=== PATIENT | female | born 1965 | race Caucasian/White ===

== ENCOUNTER 2017-12-29 16:51 | Inpatient (IN) | payer BC ==
[2017-12-29] MEDS ORDERED: SODIUM CHLORIDE 0.9% 1,000 ML IV STA (18:07)
[2017-12-29] MEDS ORDERED: KETOROLAC 30 MG/ML 1 ML VIAL IVP STA (18:07)
[2017-12-29] MEDS ORDERED: ONDANSETRON 4 MG/2 ML VIAL IVP STA (18:07)
--- NOTE | 2017-12-29 18:12 | ED ---
Abdominal Pain HPI - General Chief Complaint: Abdominal Pain Stated Complaint: abdominal pain Time Seen by Provider: 12/29/17 18:00 Source: patient, RN notes reviewed Mode of arrival: ambulatory Limitations: no limitations - History of Present Illness Initial Comments: This is a 52-year-old female who presents to the emergency department with chief complaint of abdominal pain. Patient states that she was visiting her mother who is hospitalized upstairs here at the hospital. She states that while she was visiting her she developed a burning abdominal pain. She states that she took a digestive enzyme and Tums because she believed it was heartburn. She states that this did not relieve the pain. She states that she went back to her parents house to lie down, thinking that the pain would subside , however it has progressed throughout the day. She states the pain is made better with lying stretched out and is worse with sitting or bending over. She admits to associated nausea but denies vomiting, diarrhea or constipation. Denies fevers but does admit to chills. Denies dysuria, hematuria, chest pain or shortness of breath. Patient states that the only abdominal surgeries she's had are 2 sections. - Related Data Home Medications Medication Instructions Recorded Confirmed Calcium Carbonate [Tums] 500 mg PO QID PRN 12/29/17 12/29/17 Allergies Allergy/AdvReac Type Severity Reaction Status Date / Time No Known Allergies Allergy Verified 12/29/17 17:20 Review of Systems ROS Statement: Those systems with pertinent positive or pertinent negative responses have been documented in the HPI. ROS Other: All systems not noted in ROS Statement are negative. Past Medical History Past Medical History: No Reported History History of Any Multi-Drug Resistant Organisms: None Reported Past Surgical History: Section Past Psychological History: No Psychological Hx Reported Smoking Status: Never smoker Past Alcohol Use History: Occasional Past Drug Use History: None Reported General Exam - General Exam Comments Initial Comments: General: Awake and alert, well-developed; in no apparent distress. HEENT: Head atraumatic, normocephalic. Pupils are equal, round and reactive to light. Extraocular movements intact. Oropharynx moist without erythema or exudate. Neck: Supple. Normal ROM. Cardiovascular: Regular rate and rhythm. No murmurs, rubs or gallops. Chest symmetrical. Respiratory: Lungs clear to auscultation bilaterally. No wheezes, rales or rhonchi. Normal respiratory effort with no use of accessory muscles. Abdomen: Tenderness on palpation of right upper quadrant with guarding. No rigidity or rebound. Normal bowel sounds in all 4 quadrants. Musculoskeletal: Normal ROM, no tenderness bilateral upper and lower extremities. Ambulating normally. Skin: [place], warm and dry without rashes or lesions. Neurological: Alert and oriented x3. CN II-XII grossly intact. Speech is fluent and answers are appropriate. No focal neuro deficits. Psychiatric: Normal mood and affect. No overt signs of depression or anxiety noted. Limitations: no limitations Course Vital Signs 12/29/17 12/29/17 12/29/17 17:17 20:00 22:00 Temperature 97.6 F 97.5 F L 98.7 F Pulse Rate 88 91 83 Respiratory 18 15 16 Rate Blood Pressure 120/72 135/72 113/58 O2 Sat by Pulse 98 95 98 Oximetry - Reevaluation(s) Reevaluation #1: At this time, patient is resting comfortably in bed. She states that she had an episode of vomiting and that she feels completely improved. She states that she is no longer having abdominal pain. She states that she will still have labs drawn to make sure there is no underlying issue. Does not wish for any medication at this time. 12/29/17 18:43 Medical Decision Making - Medical Decision Making This is a 52-year-old female who presents to the emergency department with chief complaint of abdominal pain that started this morning. On presentation, patient's vital signs are stable. On physical examination, right upper quadrant is tender on palpation. While in the emergency department, patient had an episode of vomiting. After this, her abdominal pain subsided. Labs were still drawn. Labs revealed an elevated total bilirubin, ALT and AST. Ultrasound of the gallbladder was obtained and revealed evidence for acute and chronic cholecystitis. Also revealed evidence for possible gallbladder tumor. Patient will be admitted to Dr. Burton. She is to be kept nothing by mouth. Patient was made aware of findings and plan. She is in agreement with admission. All questions answered. - Lab Data Result diagrams: 12/29/17 18:55 12/29/17 18:55 Lab Results 12/29/17 12/29/17 12/29/17 Range/Units 18:55 18:55 18:55 WBC 10.2 (3.8-10.6) k/uL RBC 5.25 (3.80-5.40) m/uL Hgb 15.4 (11.4-16.0) gm/dL Hct 46.0 (34.0-46.0) % MCV 87.5 (80.0-100.0) fL MCH 29.4 (25.0-35.0) pg MCHC 33.6 (31.0-37.0) g/dL RDW 12.9 (11.5-15.5) % Plt Count 261 (150-450) k/uL Neutrophils % 94 % Lymphocytes % 3 % Monocytes % 2 % Eosinophils % 0 % Basophils % 0 % Neutrophils # 9.6 H (1.3-7.7) k/uL Lymphocytes # 0.3 L (1.0-4.8) k/uL Monocytes # 0.2 (0-1.0) k/uL Eosinophils # 0.0 (0-0.7) k/uL Basophils # 0.0 (0-0.2) k/uL PT 9.9 (9.0-12.0) sec INR 1.0 (<1.2) APTT 21.8 L (22.0-30.0) sec Sodium 142 (137-145) mmol/L Potassium 3.7 (3.5-5.1) mmol/L Chloride 101 (98-107) mmol/L Carbon Dioxide 25 (22-30) mmol/L Anion Gap 16 mmol/L BUN 17 (7-17) mg/dL Creatinine 0.60 (0.52-1.04) mg/dL Est GFR (CKD-EPI)AfAm >90 (>60 ml/min/1.73 sqM) Est GFR (CKD-EPI)NonAf >90 (>60 ml/min/1.73 sqM) Glucose 127 H (74-99) mg/dL Calcium 10.6 H (8.4-10.2) mg/dL Total Bilirubin 1.6 H (0.2-1.3) mg/dL AST 355 H (14-36) U/L ALT 254 H (9-52) U/L Alkaline Phosphatase 102 (38-126) U/L Total Protein 7.2 (6.3-8.2) g/dL Albumin 4.6 (3.5-5.0) g/dL Amylase 61 (30-110) U/L Lipase 146 (23-300) U/L Urine Color Urine Appearance (Clear) Urine pH (5.0-8.0) Ur Specific [place] (1.001-1.035) Urine Protein (Negative) Urine Glucose (UA) (Negative) Urine Ketones (Negative) Urine Blood (Negative) Urine Nitrite (Negative) Urine Bilirubin (Negative) Urine Urobilinogen (<2.0) mg/dL Ur Leukocyte Esterase (Negative) Ur Squamous Epith Cells (0-4) /hpf Urine Mucus (None) /hpf Urine Yeast (Budding) (None) /hpf Urine HCG, Qual (Not Detectd) 12/29/17 12/29/17 Range/Units 21:59 21:59 WBC (3.8-10.6) k/uL RBC (3.80-5.40) m/uL Hgb (11.4-16.0) gm/dL Hct (34.0-46.0) % MCV (80.0-100.0) fL MCH (25.0-35.0) pg MCHC (31.0-37.0) g/dL RDW (11.5-15.5) % Plt Count (150-450) k/uL Neutrophils % % Lymphocytes % % Monocytes % % Eosinophils % % Basophils % % Neutrophils # (1.3-7.7) k/uL Lymphocytes # (1.0-4.8) k/uL Monocytes # (0-1.0) k/uL Eosinophils # (0-0.7) k/uL Basophils # (0-0.2) k/uL PT (9.0-12.0) sec INR (<1.2) APTT (22.0-30.0) sec Sodium (137-145) mmol/L Potassium (3.5-5.1) mmol/L Chloride (98-107) mmol/L Carbon Dioxide (22-30) mmol/L Anion Gap mmol/L BUN (7-17) mg/dL Creatinine (0.52-1.04) mg/dL Est GFR (CKD-EPI)AfAm (>60 ml/min/1.73 sqM) Est GFR (CKD-EPI)NonAf (>60 ml/min/1.73 sqM) Glucose (74-99) mg/dL Calcium (8.4-10.2) mg/dL Total Bilirubin (0.2-1.3) mg/dL AST (14-36) U/L ALT (9-52) U/L Alkaline Phosphatase (38-126) U/L Total Protein (6.3-8.2) g/dL Albumin (3.5-5.0) g/dL Amylase (30-110) U/L Lipase (23-300) U/L Urine Color Yellow Urine Appearance Cloudy H (Clear) Urine pH 7.5 (5.0-8.0) Ur Specific [place] 1.015 (1.001-1.035) Urine Protein Negative (Negative) Urine Glucose (UA) Negative (Negative) Urine Ketones 1+ H (Negative) Urine Blood Negative (Negative) Urine Nitrite Negative (Negative) Urine Bilirubin Negative (Negative) Urine Urobilinogen 6.0 (<2.0) mg/dL Ur Leukocyte Esterase Negative (Negative) Ur Squamous Epith Cells 2 (0-4) /hpf Urine Mucus Rare H (None) /hpf Urine Yeast (Budding) Many H (None) /hpf Urine HCG, Qual Not Detected (Not Detectd) - Radiology Data Radiology results: report reviewed Ultrasound gallbladder impression: Multiple gallstones and gallbladder debris. Thickened gallbladder wall. This is consistent with acute and chronic cholecystitis. Intrahepatic bile ducts are not dilated. Gallbladder tumor cannot be excluded. Disposition Clinical Impression: Acute cholecystitis Disposition: ADMITTED IP TO THIS HOSP Condition: Stable Is patient prescribed a controlled substance at d/c from ED?: No Referrals: Nonstaff,Physician [REFERRING] - 1-2 days Time of Disposition: 23:23
[2017-12-29 19:17] LABS: Basophils % (A) 0 %; Eosinophils % (A) 0 %; HGB 15.4 gm/dL (11.4-16.0); Lymphocytes # (A) 0.3 k/uL (1.0-4.8); Lymphocytes % (A) 3 %; MCH 29.4 pg (25.0-35.0); MCHC 33.6 g/dL (31.0-37.0); MCV 87.5 fL (80.0-100.0); Monocytes # (A) 0.2 k/uL (0-1.0); Monocytes % (A) 2 %; Neutrophils # (A) 9.6 k/uL (1.3-7.7); Neutrophils % (A) 94 %; Platelet Count 261 k/uL (150-450); RBC 5.25 m/uL (3.80-5.40); RDW 12.9 % (11.5-15.5); WBC 10.2 k/uL (3.8-10.6)
[2017-12-29 19:48] LABS: Prothrombin Time 9.9 sec (9.0-12.0)
[2017-12-29 19:54] LABS: ALT 254 U/L (9-52); AST 355 U/L (14-36); Albumin 4.6 g/dL (3.5-5.0); Alkaline Phosphatase 102 U/L (38-126); Amylase 61 U/L (30-110); Anion Gap 16 mmol/L; Blood Urea Nitrogen 17 mg/dL (7-17); Calcium 10.6 mg/dL (8.4-10.2); Carbon Dioxide 25 mmol/L (22-30); Chloride 101 mmol/L (98-107); Glucose 127 mg/dL (74-99); Lipase 146 U/L (23-300); Potassium 3.7 mmol/L (3.5-5.1); Sodium 142 mmol/L (137-145); Total Bilirubin 1.6 mg/dL (0.2-1.3); Total Protein 7.2 g/dL (6.3-8.2)
[2017-12-29 20:01] LABS: Partial Thromboplastin Time 21.8 sec (22.0-30.0)
--- NOTE | 2017-12-29 21:17 | US ---
EXAMINATION TYPE: US gallbladder DATE OF EXAM: 12/29/2017 COMPARISON: NONE CLINICAL HISTORY: Pain. Extreme abd pain tonight, patient vomited and then symptoms went away EXAM MEASUREMENTS: Liver Length: 13.8 cm Gallbladder Wall: 0.3 cm CBD: 0.7 cm Right Kidney: 10.1 x 5.0 x 5.7 cm * bowel gas limits exam Pancreas: wnl Liver: intercostal imaging due to bowel gas, 2 cystic areas noted medially, largest = 2.6cm Gallbladder: 1.5cm stone seen near neck of GB, appears non mobile, possible multiple smaller stone s een within tumefactive sludge versus mass, fundal fold noted that also contains possible sludge and s mall stones, wall thickness was borderline, no gutter fluid seen Evidence for sonographic Hogue's sign: no CBD: upper limits of normal with no obvious obstruction seen Right Kidney: wnl IMPRESSION: Multiple gallstones and gallbladder debris. Thickened gallbladder wall. This is consisten t with acute and chronic cholecystitis. Intrahepatic bile ducts are not dilated. Gallbladder tumor ca nnot be excluded.
[2017-12-29 22:11] LABS: Appearance,Urine Cloudy (Clear); Bilirubin,Urine Negative (Negative); Blood,Urine Negative (Negative); Budding Yeast,Urine Many /hpf; Color,Urine Yellow; Glucose,Urine (UA) Negative (Negative); Ketones,Urine 1+ (Negative); Leukocyte Esterase,Urine Negative (Negative); Mucus,Urine Rare /hpf; Nitrite,Urine Negative (Negative); PH, Urine 7.5 (5.0-8.0); Protein,Urine Negative (Negative); Specific Gravity,Urine 1.015 (1.001-1.035); Squamous Epithelial Cell,Urine 2 /hpf (0-4)
[2017-12-29] MEDS ORDERED: IBUPROFEN 400 MG TAB PO PRN (22:50)
[2017-12-29] MEDS ORDERED: KETOROLAC 30 MG/ML 1 ML VIAL IVP PRN (22:50)
[2017-12-29] MEDS ORDERED: MORPHINE SULFATE 4 MG/ML SYRINGE IV PRN (22:50)
[2017-12-29] MEDS ORDERED: NALOXONE 0.4 MG/ML 1 ML VIAL IV PRN (22:50)
[2017-12-29] MEDS ORDERED: SODIUM CHLORIDE 0.9% 1,000 ML IV SCH (23:00)
[2017-12-30 07:09] VITALS: BP 106/68; PULSE 79; RESP 14; TEMP 98
--- NOTE | 2017-12-30 09:53 | P.GSHP ---
History of Present Illness H&P Date: 12/30/17 Chief Complaint: Right upper quadrant pain This is a 52-year-old female who was visiting her mother in the hospital. The patient states she developed abdominal pain. She was seen in the emergency room and found have evidence of cholelithiasis. Patient was admitted due to mild elevation in her liver function tests. The patient states she currently has no pain. And feels well. Past Medical History Past Medical History: Cancer Additional Past Medical History / Comment(s): skin CA - removed History of Any Multi-Drug Resistant Organisms: None Reported Past Surgical History: Section Past Anesthesia/Blood Transfusion Reactions: No Reported Reaction Past Psychological History: No Psychological Hx Reported Smoking Status: Never smoker Past Alcohol Use History: Occasional Past Drug Use History: None Reported - Past Family History Mother Additional Family Medical History / Comment(s): prolapsed valve- open heart surgery Sep 2017 Father Family Medical History: No Reported History Medications and Allergies Home Medications Medication Instructions Recorded Confirmed Type Calcium Carbonate [Tums] 500 mg PO QID PRN 12/29/17 12/29/17 History Allergies Allergy/AdvReac Type Severity Reaction Status Date / Time No Known Allergies Allergy Verified 12/29/17 17:20 Surgical - Exam Vital Signs Temp Pulse Resp BP Pulse Ox 97.6 F 88 18 120/72 98 12/29/17 17:17 12/29/17 17:17 12/29/17 17:17 12/29/17 17:17 12/29/17 17:17 - General well developed, no distress - Eyes PERRL - ENT normal pinna - Neck no masses - Respiratory normal expansion - Cardiovascular Rhythm: regular - Abdomen Abdomen: soft, non tender Results - Labs 12/29/17 18:55 12/29/17 18:55 Abnormal Lab Results - Last 24 Hours (Table) 12/29/17 12/29/17 12/29/17 Range/Units 18:55 18:55 18:55 Neutrophils # 9.6 H (1.3-7.7) k/uL Lymphocytes # 0.3 L (1.0-4.8) k/uL APTT 21.8 L (22.0-30.0) sec Glucose 127 H (74-99) mg/dL Calcium 10.6 H (8.4-10.2) mg/dL Total Bilirubin 1.6 H (0.2-1.3) mg/dL AST 355 H (14-36) U/L ALT 254 H (9-52) U/L Urine Appearance (Clear) Urine Ketones (Negative) Urine Mucus (None) /hpf Urine Yeast (Budding) (None) /hpf 12/29/17 Range/Units 21:59 Neutrophils # (1.3-7.7) k/uL Lymphocytes # (1.0-4.8) k/uL APTT (22.0-30.0) sec Glucose (74-99) mg/dL Calcium (8.4-10.2) mg/dL Total Bilirubin (0.2-1.3) mg/dL AST (14-36) U/L ALT (9-52) U/L Urine Appearance Cloudy H (Clear) Urine Ketones 1+ H (Negative) Urine Mucus Rare H (None) /hpf Urine Yeast (Budding) Many H (None) /hpf Diabetes panel 12/29/17 Range/Units 18:55 Sodium 142 (137-145) mmol/L Potassium 3.7 (3.5-5.1) mmol/L Chloride 101 (98-107) mmol/L Carbon Dioxide 25 (22-30) mmol/L BUN 17 (7-17) mg/dL Creatinine 0.60 (0.52-1.04) mg/dL Glucose 127 H (74-99) mg/dL Calcium 10.6 H (8.4-10.2) mg/dL AST 355 H (14-36) U/L ALT 254 H (9-52) U/L Alkaline Phosphatase 102 (38-126) U/L Total Protein 7.2 (6.3-8.2) g/dL Albumin 4.6 (3.5-5.0) g/dL Calcium panel 12/29/17 Range/Units 18:55 Calcium 10.6 H (8.4-10.2) mg/dL Albumin 4.6 (3.5-5.0) g/dL Pituitary panel 12/29/17 Range/Units 18:55 Sodium 142 (137-145) mmol/L Potassium 3.7 (3.5-5.1) mmol/L Chloride 101 (98-107) mmol/L Carbon Dioxide 25 (22-30) mmol/L BUN 17 (7-17) mg/dL Creatinine 0.60 (0.52-1.04) mg/dL Glucose 127 H (74-99) mg/dL Calcium 10.6 H (8.4-10.2) mg/dL Adrenal panel 12/29/17 Range/Units 18:55 Sodium 142 (137-145) mmol/L Potassium 3.7 (3.5-5.1) mmol/L Chloride 101 (98-107) mmol/L Carbon Dioxide 25 (22-30) mmol/L BUN 17 (7-17) mg/dL Creatinine 0.60 (0.52-1.04) mg/dL Glucose 127 H (74-99) mg/dL Calcium 10.6 H (8.4-10.2) mg/dL Total Bilirubin 1.6 H (0.2-1.3) mg/dL AST 355 H (14-36) U/L ALT 254 H (9-52) U/L Alkaline Phosphatase 102 (38-126) U/L Total Protein 7.2 (6.3-8.2) g/dL Albumin 4.6 (3.5-5.0) g/dL - Imaging US - abdomen: report reviewed (Minimal gallbladder wall thickening. There is evidence of sludge and stones within the gallbladder.) Assessment and Plan Assessment: Chronic cholecystitis. Patient may have passed a gallstone. Her liver function tests are mildly elevated. She will have her liver function tests repeated today. The patient will need outpatient laparoscopic cholecystectomy when stable.
[2017-12-30 11:40] LABS: Basophils % (A) 0 %; Eosinophils % (A) 1 %; HCT 46.8 % (34.0-46.0); HGB 15.6 gm/dL (11.4-16.0); Lymphocytes % (A) 15 %; MCHC 33.3 g/dL (31.0-37.0); Mean Platelet Volume 6.8; Monocytes # (A) 0.3 k/uL (0-1.0); Monocytes % (A) 5 %; Neutrophils # (A) 5.2 k/uL (1.3-7.7); Neutrophils % (A) 78 %; Platelet Count 279 k/uL (150-450); WBC 6.6 k/uL (3.8-10.6)
[2017-12-30 11:41] LABS: ALT 332 U/L (9-52); AST 249 U/L (14-36); Albumin 4.4 g/dL (3.5-5.0); Alkaline Phosphatase 106 U/L (38-126); Anion Gap 13 mmol/L; Blood Urea Nitrogen 16 mg/dL (7-17); Calcium 9.7 mg/dL (8.4-10.2); Carbon Dioxide 28 mmol/L (22-30); Chloride 103 mmol/L (98-107); Glucose 88 mg/dL (74-99); Potassium 3.9 mmol/L (3.5-5.1); Sodium 144 mmol/L (137-145); Total Bilirubin 1.1 mg/dL (0.2-1.3); Total Protein 6.9 g/dL (6.3-8.2)
--- NOTE | 2018-01-11 11:04 | P.DS ---
Providers Date of admission: 12/29/17 22:50 Expected date of discharge: 12/30/17 Attending physician: Robert Burton Primary care physician: Stated None Hospital Course: This a 52 female who was admitted to the hospital. Patient was found evidence of choledocholithiasis. Patient [place] town and wishes to undergo laparoscopic cholecystectomy [place]. Please see hospital chart for details. Patient Condition at Discharge: Stable Plan - Discharge Summary New Discharge Prescriptions: No Action Calcium Carbonate [Tums] 500 mg PO QID PRN PRN Reason: Heartburn Discharge Medication List Calcium Carbonate [Tums] 500 mg PO QID PRN 12/29/17 [History] Follow up Appointment(s)/Referral(s): Nonstaff,Physician [REFERRING] - 1-2 days Patient Instructions/Handouts: Cholecystitis (GEN) Activity/Diet/Wound Care/Special Instructions: Follow up on an outpatient basis to schedule cholecystectomy Discharge Disposition: HOME SELF-CARE
== END 2017-12-30 14:25 | disposition home or self-care (01) | DRG 446 ==
LOC: EC 16:51 → 3SUR 22:50
PROVIDERS: ADMIT Surgery; ATTEND Surgery
DX: K80.12 Calculus of gallbladder with acute and chronic cholecystitis without obstruction (principal); R94.5 Abnormal results of liver function studies; Z82.49 Family history of ischemic heart disease and other diseases of the circulatory system
CPT/HCPCS: 36415; 76705; 80053; 81001; 81025; 82150; 83690; 85025; 85610; 85730; 93005; 99285